=== PATIENT | female | born 1960 | race Caucasian/White ===

== ENCOUNTER → 2018-10-09 | Outpatient (CLI) | payer OTHER | LOC: M.CT 13:52 | DX: I25.84 Coronary atherosclerosis due to calcified coronary lesion (principal); E78.5 Hyperlipidemia, unspecified ==

== ENCOUNTER → 2020-07-30 | Outpatient (CLI) | payer OTHER | LOC: M.CT 11:10 | PROVIDERS: ATTEND Family Medicine | DX: K57.90 Diverticulosis of intestine, part unspecified, without perforation or abscess without bleeding (principal); N85.2 Hypertrophy of uterus; R35.0 Frequency of micturition; N85.8 Other specified noninflammatory disorders of uterus; R18.8 Other ascites; R19.5 Other fecal abnormalities ==